=== PATIENT | female | born 1960 | race Two or more races ===

== ENCOUNTER 2020-08-11 15:20 | Inpatient (IN) | payer OTHER ==
[~2020-08-11] VITALS: Ht 157.5 cm; Wt 44.2 kg
[2020-08-11] MEDS ORDERED: SODIUM CHLORIDE 0.9% 1,000 ML IV ONE ×2 (16:15)
[2020-08-11] MEDS ORDERED: NOREPINEPHRINE 8 MG/250ML KIT 250 ML IV ONE (17:27)
[2020-08-11 17:49] LABS: Urine WBC None Seen /hpf (0 - 5)
[2020-08-11 17:59] LABS: Basophils # (auto) 0 10 ^3/uL (0-0.2); Basophils % (auto) 0.6 % (0.0-2.0); Eosinophils # (auto) 0.1 10 ^3/uL (0-0.8); Eosinophils % (auto) 2.3 % (0.0-7.0); Hematocrit 38.2 % (36.0-46.0); Hemoglobin 13.4 g/dL (12.2-16.2); Lymphocytes % (auto) 17.1 % (10.0-50.0); Mean Corpuscular Hemoglobin 32.4 pg (28.0-32.0); Mean Corpuscular Hgb Conc. 35.1 g/dL (32.0-36.0); Mean Corpuscular Volume 92.4 fL (80.0-100.0); Monocytes # (auto) 0.4 10 ^3/uL (0-1.3); Monocytes % (auto) 5.7 % (0.0-12.0); Neutrophils # (auto) 4.6 10 ^3/uL (1.6-8.6); Neutrophils % (auto) 74.3 % (37.0-80.0); Platelet Count (auto) 270 10^3/uL (140-450); Red Blood Cells 4.14 10^6/uL (4.0-5.20); Red Cell Distribution Width 13.2 % (11.8-14.3); White Blood Cell 6.1 10^3/uL (4.4-10.8)
[2020-08-11 18:14] LABS: Alanine Aminotransferase 16 U/L (13-56); Albumin 3.6 g/dL (3.4-5.0); Anion Gap 7 (5-15); Aspartate Aminotransferase 19 U/L (15-37); BUN/Creatinine Ratio 28.1; Blood Urea Nitrogen 16 mg/dL (7-18); Calcium 8.7 mg/dL (8.5-10.1); Carbon Dioxide 30 mmol/L (21-32); Chloride 103 mmol/L (98-107); GFR African American 140 mL/min; GFR Non-African American 115 mL/min; Glucose 96 mg/dL (74-106); Potassium 3.1 mmol/L (3.5-5.1); Sodium 140 mmol/L (136-145)
[2020-08-11 18:18] LABS: Alkaline Phosphatase 80 U/L (45-117); Bilirubin, Total 0.4 mg/dL (0.2-1.0)
[2020-08-11 18:35] LABS: Urine Bacteria NONE SEEN /hpf (None Seen); Urine Blood Negative /uL (Negative); Urine Mucus FEW (None Seen); Urine Specific Gravity 1.007 (1.001-1.035)
[2020-08-11] MEDS ORDERED: MORPHINE SULF INJ 2 MG/ML SYRINGE 1ML IV PRN (23:00)
[2020-08-11] MEDS: SODIUM CHLORIDE 0.9% 1,000 ML IV SCH (23:00)
[2020-08-11] MEDS ORDERED: POTASSIUM CHL 20 Meq TABLET PO ONE (23:00)
[2020-08-11] MEDS ORDERED: ACETAMINOPHEN 325 MG TAB PO PRN (23:00)
[2020-08-11] MEDS ORDERED: NITROGLYCERIN 0.4 MG SL TAB SL PRN (23:00)
[2020-08-11] MEDS ORDERED: POTASSIUM EFFERVESENT TAB 25 MEQ PO ONE (23:45)
[2020-08-11 23:52] VITALS: BP 97/69
[2020-08-12 05:00] VITALS: BP 133/66
[2020-08-12 08:30] VITALS: BP 77/54
[2020-08-12] MEDS: FAMOTIDINE 20 MG TAB PO SCH ×2 (10:45→23:19)
[2020-08-12] MEDS: ENOXAPARIN SOD 30 MG/0.3 ML SYRINGE SC SCH (10:45)
[2020-08-12] MEDS: ASCORBIC ACID 500 MG TAB PO SCH ×2 (10:45→23:20)
[2020-08-12] MEDS: ZINC SULFATE 220mg CAP or TAB PO SCH (10:45)
[2020-08-12] MEDS: MULTIPLE VITAMIN TAB PO SCH (10:45)
[2020-08-12] MEDS ORDERED: SODIUM CHLORIDE 0.9% 500 ML IV ONE (11:30)
[2020-08-12 12:30] VITALS: BP 85/59
[2020-08-12 17:00] VITALS: BP 84/54
[2020-08-12] MEDS ORDERED: HYDR12.56 PO (17:29)
[2020-08-12] MEDS ORDERED: AMLO-489 PO (17:29)
[2020-08-12] MEDS ORDERED: ATOR-47 PO (17:29)
[2020-08-12] MEDS: SODIUM CHLORIDE 0.9% 1,000 ML IV SCH ×2 (18:00→23:19)
[2020-08-12 22:00] VITALS: BP 80/66
[2020-08-13] VITALS (9 sets, daily range): BP systolic 92–117; BP diastolic 59–78
[2020-08-13 05:47] LABS: Basophils # (auto) 0.1 10 ^3/uL (0-0.2); Basophils % (auto) 1.3 % (0.0-2.0); Eosinophils # (auto) 0.3 10 ^3/uL (0-0.8); Eosinophils % (auto) 5.1 % (0.0-7.0); Hematocrit 35.4 % (36.0-46.0); Hemoglobin 12.5 g/dL (12.2-16.2); Lymphocytes # (auto) 1.4 10 ^3/uL (0.4-5.4); Lymphocytes % (auto) 22.5 % (10.0-50.0); Mean Corpuscular Hemoglobin 32.8 pg (28.0-32.0); Mean Corpuscular Hgb Conc. 35.2 g/dL (32.0-36.0); Mean Corpuscular Volume 93.2 fL (80.0-100.0); Monocytes # (auto) 0.4 10 ^3/uL (0-1.3); Monocytes % (auto) 7.1 % (0.0-12.0); Neutrophils # (auto) 3.9 10 ^3/uL (1.6-8.6); Nucleated Red Blood Cells % 0.1 %; Platelet Count (auto) 254 10^3/uL (140-450); Red Cell Distribution Width 13.4 % (11.8-14.3); White Blood Cell 6.1 10^3/uL (4.4-10.8)
[2020-08-13 06:59] LABS: Alanine Aminotransferase 15 U/L (13-56); Albumin 2.9 g/dL (3.4-5.0); Alkaline Phosphatase 66 U/L (45-117); Anion Gap 8 (5-15); Aspartate Aminotransferase 18 U/L (15-37); Bilirubin, Total 0.3 mg/dL (0.2-1.0); Blood Urea Nitrogen 8 mg/dL (7-18); Calcium 8.5 mg/dL (8.5-10.1); Carbon Dioxide 21 mmol/L (21-32); Chloride 111 mmol/L (98-107); GFR African American 162 mL/min; GFR Non-African American 134 mL/min; Glucose 90 mg/dL (74-106); Potassium 3.7 mmol/L (3.5-5.1); Sodium 140 mmol/L (136-145); Total Protein 6.6 g/dL (6.4-8.2)
[2020-08-13] MEDS: ZINC SULFATE 220mg CAP or TAB PO SCH (09:35)
[2020-08-13] MEDS: ASCORBIC ACID 500 MG TAB PO SCH ×2 (09:36→20:56)
[2020-08-13] MEDS: MULTIPLE VITAMIN TAB PO SCH (09:36)
[2020-08-13] MEDS: FAMOTIDINE 20 MG TAB PO SCH ×2 (09:36→20:57)
[2020-08-13] MEDS: SODIUM CHLORIDE 0.9% 1,000 ML IV SCH ×2 (09:37→19:12)
[2020-08-13] MEDS: ENOXAPARIN SOD 30 MG/0.3 ML SYRINGE SC SCH (09:37)
[2020-08-13] MEDS: Ensure HIGH Protein Chocolate 8oz Bottle PO SCH ×2 (15:38→18:18)
[2020-08-14 05:35] VITALS: BP 100/76
[2020-08-14 05:48] LABS: Basophils # (auto) 0 10 ^3/uL (0-0.2); Basophils % (auto) 0.7 % (0.0-2.0); Eosinophils # (auto) 0.3 10 ^3/uL (0-0.8); Eosinophils % (auto) 6.5 % (0.0-7.0); Hematocrit 34.1 % (36.0-46.0); Hemoglobin 12.2 g/dL (12.2-16.2); Lymphocytes # (auto) 1.2 10 ^3/uL (0.4-5.4); Lymphocytes % (auto) 23.6 % (10.0-50.0); Mean Corpuscular Hemoglobin 32.9 pg (28.0-32.0); Mean Corpuscular Hgb Conc. 35.7 g/dL (32.0-36.0); Monocytes # (auto) 0.4 10 ^3/uL (0-1.3); Monocytes % (auto) 7.3 % (0.0-12.0); Neutrophils # (auto) 3.2 10 ^3/uL (1.6-8.6); Neutrophils % (auto) 61.9 % (37.0-80.0); Platelet Count (auto) 256 10^3/uL (140-450); Red Cell Distribution Width 13.3 % (11.8-14.3); White Blood Cell 5.2 10^3/uL (4.4-10.8)
[2020-08-14 06:07] LABS: Potassium 3.8 mmol/L (3.5-5.1)
[2020-08-14 06:48] LABS: BUN/Creatinine Ratio 19.6; Calcium 8.9 mg/dL (8.5-10.1)
[2020-08-14 08:00] VITALS: BP 127/78
[2020-08-14] MEDS: Ensure HIGH Protein Chocolate 8oz Bottle PO SCH ×3 (08:00→18:00)
[2020-08-14 09:00] VITALS: BP 127/78
[2020-08-14] MEDS: ZINC SULFATE 220mg CAP or TAB PO SCH (09:57)
[2020-08-14] MEDS: ASCORBIC ACID 500 MG TAB PO SCH ×2 (09:57→20:22)
[2020-08-14] MEDS: ENOXAPARIN SOD 30 MG/0.3 ML SYRINGE SC SCH (09:57)
[2020-08-14] MEDS: MULTIPLE VITAMIN TAB PO SCH (09:57)
[2020-08-14] MEDS: FAMOTIDINE 20 MG TAB PO SCH ×2 (09:57→20:22)
[2020-08-14 13:00] VITALS: BP 113/89
[2020-08-14 17:00] VITALS: BP 94/75
[2020-08-14] MEDS: SODIUM CHLORIDE 0.9% 1,000 ML IV SCH (17:40)
[2020-08-14] MEDS ORDERED: IOHEXOL 300 MG/ML 100ML BOTTLE IJ ONE (17:51)
[2020-08-15 02:41] VITALS: BP 124/81
[2020-08-15 05:00] VITALS: BP 91/46
[2020-08-15] MEDS: LEVOTHYROXINE SODIUM 25 MCG TAB PO SCH (05:57)
[2020-08-15 06:10] LABS: Basophils # (auto) 0 10 ^3/uL (0-0.2); Basophils % (auto) 0.6 % (0.0-2.0); Eosinophils # (auto) 0.3 10 ^3/uL (0-0.8); Eosinophils % (auto) 6.4 % (0.0-7.0); Hematocrit 34.1 % (36.0-46.0); Hemoglobin 12.2 g/dL (12.2-16.2); Lymphocytes # (auto) 1.3 10 ^3/uL (0.4-5.4); Mean Corpuscular Hgb Conc. 35.7 g/dL (32.0-36.0); Mean Corpuscular Volume 92.5 fL (80.0-100.0); Monocytes # (auto) 0.5 10 ^3/uL (0-1.3); Monocytes % (auto) 8.3 % (0.0-12.0); Neutrophils # (auto) 3.3 10 ^3/uL (1.6-8.6); Neutrophils % (auto) 60.7 % (37.0-80.0); Platelet Count (auto) 253 10^3/uL (140-450); Red Blood Cells 3.69 10^6/uL (4.0-5.20); Red Cell Distribution Width 13.4 % (11.8-14.3); White Blood Cell 5.5 10^3/uL (4.4-10.8)
[2020-08-15 06:30] LABS: Potassium 4.1 mmol/L (3.5-5.1)
[2020-08-15 06:42] LABS: BUN/Creatinine Ratio 22.4; Calcium 8.6 mg/dL (8.5-10.1)
[2020-08-15] MEDS: Ensure HIGH Protein Chocolate 8oz Bottle PO SCH ×3 (08:00→18:00)
[2020-08-15 09:00] VITALS: BP 125/76
[2020-08-15] MEDS: FAMOTIDINE 20 MG TAB PO SCH ×3 (10:04→21:23)
[2020-08-15] MEDS: MULTIPLE VITAMIN TAB PO SCH (10:04)
[2020-08-15] MEDS: ZINC SULFATE 220mg CAP or TAB PO SCH (10:04)
[2020-08-15] MEDS: ENOXAPARIN SOD 30 MG/0.3 ML SYRINGE SC SCH (10:05)
[2020-08-15] MEDS: ASCORBIC ACID 500 MG TAB PO SCH ×3 (10:05→21:23)
[2020-08-15 11:36] LABS: Free T4 (Free Thyroxine) 1.04 ng/dL (0.89-1.76); T3 Total 1.08 ng/mL (0.60-1.81)
[2020-08-15 13:00] VITALS: BP 92/62
[2020-08-15 17:00] VITALS: BP 100/72
[2020-08-15 22:00] VITALS: BP 95/68
[2020-08-15] MEDS ORDERED: ALBUTEROL SULF 2.5 MG/0.5ML(0.5%) NEB SOLN NEB ONE (22:30)
[2020-08-16 05:00] VITALS: BP 119/78
[2020-08-16] MEDS: LEVOTHYROXINE SODIUM 25 MCG TAB PO SCH (06:02)
[2020-08-16] MEDS: Ensure HIGH Protein Chocolate 8oz Bottle PO SCH ×3 (08:00→18:00)
[2020-08-16 09:05] VITALS: BP 100/70
[2020-08-16] MEDS ORDERED: GADOTERATE MEG 10 MMOL/20ml INJ (0.5MMOL/ml) IV ONE (09:09)
[2020-08-16] MEDS: ZINC SULFATE 220mg CAP or TAB PO SCH (10:12)
[2020-08-16] MEDS: MULTIPLE VITAMIN TAB PO SCH (10:15)
[2020-08-16] MEDS: ENOXAPARIN SOD 30 MG/0.3 ML SYRINGE SC SCH (10:15)
[2020-08-16] MEDS: ASCORBIC ACID 500 MG TAB PO SCH ×2 (10:15→22:00)
[2020-08-16] MEDS: FAMOTIDINE 20 MG TAB PO SCH ×2 (10:16→22:00)
[2020-08-16] MEDS: ONDANSETRON HCL 4 MG/2 ML VIAL IV PRN (12:30)
[2020-08-16 12:58] VITALS: BP 88/67
[2020-08-16] MEDS ORDERED: LACTULOSE 20Gm/30ML SOLN PO PRN (14:30)
[2020-08-16] MEDS ORDERED: VANCOMYCIN PER PHARMACY 0 MG IV SCH (14:45)
[2020-08-16] MEDS ORDERED: AZITHROMYCIN 500MG/ 250ML 250 ML IV ONE (14:45)
[2020-08-16] MEDS ORDERED: PIPERACILLIN-TAZOB 3.375GM 100 ML IV SCH (16:02)
[2020-08-16 16:42] VITALS: BP 153/92
[2020-08-16] MEDS ORDERED: IOHEXOL 300 MG/ML 100ML BOTTLE IJ ONE (17:39)
[2020-08-16] MEDS: PIPERACILLIN-TAZOB 3.375GM 100 ML IV SCH (18:30)
[2020-08-16 20:00] VITALS: BP 93/75
[2020-08-16] MEDS: VANCOMYCIN 1GM/250ML 250 ML IV SCH (21:00)
[2020-08-16 22:00] VITALS: BP 101/74
[2020-08-17] MEDS: PIPERACILLIN-TAZOB 3.375GM 100 ML IV SCH ×4 (00:22→18:30)
[2020-08-17] MEDS: HYDROcodone-ACET 5/325MG TAB PO PRN (02:02)
[2020-08-17 05:00] VITALS: BP 100/73
[2020-08-17 05:53] LABS: Basophils # (auto) 0 10 ^3/uL (0-0.2); Basophils % (auto) 0.2 % (0.0-2.0); Eosinophils # (auto) 0.1 10 ^3/uL (0-0.8); Eosinophils % (auto) 0.3 % (0.0-7.0); Hematocrit 31.5 % (36.0-46.0); Hemoglobin 11.2 g/dL (12.2-16.2); Lymphocytes # (auto) 0.7 10 ^3/uL (0.4-5.4); Lymphocytes % (auto) 4.4 % (10.0-50.0); Mean Corpuscular Hemoglobin 32.7 pg (28.0-32.0); Mean Corpuscular Hgb Conc. 35.5 g/dL (32.0-36.0); Monocytes # (auto) 0.9 10 ^3/uL (0-1.3); Monocytes % (auto) 6.1 % (0.0-12.0); Neutrophils # (auto) 13.3 10 ^3/uL (1.6-8.6); Platelet Count (auto) 228 10^3/uL (140-450); Red Blood Cells 3.43 10^6/uL (4.0-5.20); Red Cell Distribution Width 13.8 % (11.8-14.3)
[2020-08-17 06:10] LABS: BUN/Creatinine Ratio 21.9; Magnesium 1.8 mg/dL (1.6-2.6); Phosphorus 2.9 mg/dL (2.5-4.90)
[2020-08-17] MEDS: VANCOMYCIN 1GM/250ML 250 ML IV SCH ×2 (06:39→16:30)
[2020-08-17] MEDS: LEVOTHYROXINE SODIUM 25 MCG TAB PO SCH (06:39)
[2020-08-17] MEDS: Ensure HIGH Protein Chocolate 8oz Bottle PO SCH ×3 (08:00→18:17)
[2020-08-17 08:45] LABS: INR 1.02 (0.9-1.15); Partial Thromboplastin Time 32.3 sec (23.0-31.2)
[2020-08-17 09:10] VITALS: BP 81/53
[2020-08-17] MEDS: MULTIPLE VITAMIN TAB PO SCH (10:00)
[2020-08-17] MEDS: FAMOTIDINE 20 MG TAB PO SCH ×2 (10:00→21:49)
[2020-08-17] MEDS: ZINC SULFATE 220mg CAP or TAB PO SCH (10:00)
[2020-08-17] MEDS: ENOXAPARIN SOD 30 MG/0.3 ML SYRINGE SC SCH (10:00)
[2020-08-17] MEDS: ASCORBIC ACID 500 MG TAB PO SCH ×2 (10:00→21:50)
[2020-08-17] MEDS: AZITHROMYCIN 500MG/ 250ML 250 ML IV SCH (10:24)
[2020-08-17 13:00] VITALS: BP 112/59
[2020-08-17 14:15] VITALS: BP 81/53
[2020-08-17] MEDS: ACETYLCYSTEINE 10 %(100MG/ML) SOL 4ML NEB SCH ×3 (14:20→22:14)
[2020-08-17] MEDS: ALBUTEROL SULF 2.5 MG/0.5ML(0.5%) NEB SOLN NEB SCH ×3 (14:22→22:14)
[2020-08-17 16:40] VITALS: BP 81/55
[2020-08-17] MEDS ORDERED: ALBUMIN 25% 100 ML IV ONE (17:30)
[2020-08-17 21:54] VITALS: BP 90/69
[2020-08-18] MEDS: PIPERACILLIN-TAZOB 3.375GM 100 ML IV SCH ×4 (00:08→17:53)
[2020-08-18] MEDS: ACETYLCYSTEINE 10 %(100MG/ML) SOL 4ML NEB SCH ×7 (02:03→22:20)
[2020-08-18] MEDS: ALBUTEROL SULF 2.5 MG/0.5ML(0.5%) NEB SOLN NEB SCH ×7 (02:03→22:20)
[2020-08-18 02:39] LABS: Basophils # (auto) 0 10 ^3/uL (0-0.2); Basophils % (auto) 0.2 % (0.0-2.0); Eosinophils # (auto) 0.3 10 ^3/uL (0-0.8); Eosinophils % (auto) 1.8 % (0.0-7.0); Hemoglobin 11.5 g/dL (12.2-16.2); Lymphocytes # (auto) 0.5 10 ^3/uL (0.4-5.4); Lymphocytes % (auto) 3.1 % (10.0-50.0); Mean Corpuscular Hemoglobin 31.3 pg (28.0-32.0); Mean Corpuscular Hgb Conc. 33.9 g/dL (32.0-36.0); Mean Corpuscular Volume 92.4 fL (80.0-100.0); Monocytes # (auto) 0.9 10 ^3/uL (0-1.3); Monocytes % (auto) 5.4 % (0.0-12.0); Neutrophils # (auto) 15.5 10 ^3/uL (1.6-8.6); Neutrophils % (auto) 89.5 % (37.0-80.0); Platelet Count (auto) 251 10^3/uL (140-450); Red Blood Cells 3.68 10^6/uL (4.0-5.20); Red Cell Distribution Width 13.5 % (11.8-14.3); White Blood Cell 17.3 10^3/uL (4.4-10.8)
[2020-08-18] MEDS: VANCOMYCIN 1GM/250ML 250 ML IV SCH (03:00)
[2020-08-18 03:11] LABS: Calcium 8.9 mg/dL (8.5-10.1); Potassium 3.5 mmol/L (3.5-5.1)
[2020-08-18 05:10] VITALS: BP 90/63
[2020-08-18 05:28] LABS: Basophils # (auto) 0 10 ^3/uL (0-0.2); Basophils % (auto) 0.1 % (0.0-2.0); Eosinophils # (auto) 0.2 10 ^3/uL (0-0.8); Hematocrit 32.7 % (36.0-46.0); Hemoglobin 11.5 g/dL (12.2-16.2); Lymphocytes # (auto) 0.4 10 ^3/uL (0.4-5.4); Lymphocytes % (auto) 2.5 % (10.0-50.0); Mean Corpuscular Hemoglobin 32.4 pg (28.0-32.0); Mean Corpuscular Hgb Conc. 35.3 g/dL (32.0-36.0); Mean Corpuscular Volume 91.8 fL (80.0-100.0); Monocytes # (auto) 0.9 10 ^3/uL (0-1.3); Monocytes % (auto) 5.8 % (0.0-12.0); Neutrophils # (auto) 14.7 10 ^3/uL (1.6-8.6); Neutrophils % (auto) 90.6 % (37.0-80.0); Nucleated Red Blood Cells % 0.2 %; Platelet Count (auto) 259 10^3/uL (140-450); Red Blood Cells 3.56 10^6/uL (4.0-5.20); Red Cell Distribution Width 13.4 % (11.8-14.3); White Blood Cell 16.3 10^3/uL (4.4-10.8)
[2020-08-18 05:52] LABS: Potassium 3.4 mmol/L (3.5-5.1)
[2020-08-18 06:00] LABS: Albumin 2.8 g/dL (3.4-5.0); BUN/Creatinine Ratio 19.8; Bilirubin, Total 0.8 mg/dL (0.2-1.0); Magnesium 2.2 mg/dL (1.6-2.6); Total Protein 7.1 g/dL (6.4-8.2)
[2020-08-18] MEDS: LEVOTHYROXINE SODIUM 25 MCG TAB PO SCH (06:47)
[2020-08-18] MEDS: Ensure HIGH Protein Chocolate 8oz Bottle PO SCH ×3 (08:00→18:00)
[2020-08-18] MEDS ORDERED: POTASSIUM CHLORIDE 20 MEQ, LIDOCAINE 1% (LOCAL ANESTH.) 2 ML in SODIUM CHL 0.9% 100 ML IV ONE (08:30)
[2020-08-18 09:00] VITALS: BP 95/53
[2020-08-18] MEDS: FAMOTIDINE 20 MG TAB PO SCH ×2 (10:00→23:11)
[2020-08-18] MEDS: ENOXAPARIN SOD 30 MG/0.3 ML SYRINGE SC SCH (10:00)
[2020-08-18] MEDS: AZITHROMYCIN 500MG/ 250ML 250 ML IV SCH (10:22)
[2020-08-18] MEDS: ZINC SULFATE 220mg CAP or TAB PO SCH (10:22)
[2020-08-18] MEDS: ASCORBIC ACID 500 MG TAB PO SCH ×2 (10:23→23:11)
[2020-08-18] MEDS: MULTIPLE VITAMIN TAB PO SCH (10:23)
[2020-08-18 13:00] VITALS: BP 118/58
[2020-08-18 17:05] VITALS: BP 115/60
[2020-08-18] MEDS: VANCOMYCIN 750mg/250ml 250 ML IV SCH (17:34)
[2020-08-18 22:12] VITALS: BP 95/52
[2020-08-18 22:16] VITALS: BP 93/67
[2020-08-19] MEDS: PIPERACILLIN-TAZOB 3.375GM 100 ML IV SCH ×5 (00:36→23:50)
[2020-08-19 05:01] VITALS: BP 99/77
[2020-08-19 05:02] VITALS: BP 90/71
[2020-08-19 05:25] LABS: Basophils # (auto) 0 10 ^3/uL (0-0.2); Basophils % (auto) 0.1 % (0.0-2.0); Eosinophils # (auto) 0.2 10 ^3/uL (0-0.8); Eosinophils % (auto) 2.1 % (0.0-7.0); Hematocrit 30.8 % (36.0-46.0); Hemoglobin 10.8 g/dL (12.2-16.2); Lymphocytes # (auto) 0.5 10 ^3/uL (0.4-5.4); Lymphocytes % (auto) 4.9 % (10.0-50.0); Mean Corpuscular Hemoglobin 32.5 pg (28.0-32.0); Mean Corpuscular Hgb Conc. 35.2 g/dL (32.0-36.0); Mean Corpuscular Volume 92.3 fL (80.0-100.0); Monocytes # (auto) 0.8 10 ^3/uL (0-1.3); Monocytes % (auto) 8.1 % (0.0-12.0); Neutrophils # (auto) 8.7 10 ^3/uL (1.6-8.6); Neutrophils % (auto) 84.8 % (37.0-80.0); Platelet Count (auto) 283 10^3/uL (140-450); Red Blood Cells 3.34 10^6/uL (4.0-5.20); Red Cell Distribution Width 13.5 % (11.8-14.3); White Blood Cell 10.2 10^3/uL (4.4-10.8)
[2020-08-19 06:00] LABS: Albumin 2.6 g/dL (3.4-5.0); Calcium 8.9 mg/dL (8.5-10.1); Magnesium 2.2 mg/dL (1.6-2.6); Potassium 3.5 mmol/L (3.5-5.1)
[2020-08-19 06:03] LABS: BUN/Creatinine Ratio 12.8; Bilirubin, Total 0.5 mg/dL (0.2-1.0); Phosphorus 2.6 mg/dL (2.5-4.90); Total Protein 6.8 g/dL (6.4-8.2)
[2020-08-19] MEDS: LEVOTHYROXINE SODIUM 25 MCG TAB PO SCH (06:38)
[2020-08-19] MEDS: ACETYLCYSTEINE 10 %(100MG/ML) SOL 4ML NEB SCH ×6 (07:20→22:27)
[2020-08-19] MEDS: ALBUTEROL SULF 2.5 MG/0.5ML(0.5%) NEB SOLN NEB SCH ×6 (07:20→22:27)
[2020-08-19] MEDS: Ensure HIGH Protein Chocolate 8oz Bottle PO SCH ×3 (08:00→17:05)
[2020-08-19 09:00] VITALS: BP 154/73
[2020-08-19] MEDS: AZITHROMYCIN 500MG/ 250ML 250 ML IV SCH (09:37)
[2020-08-19] MEDS: FAMOTIDINE 20 MG TAB PO SCH ×2 (09:39→22:03)
[2020-08-19] MEDS: ENOXAPARIN SOD 30 MG/0.3 ML SYRINGE SC SCH (09:39)
[2020-08-19] MEDS: ASCORBIC ACID 500 MG TAB PO SCH ×2 (09:39→22:03)
[2020-08-19] MEDS: HYDROcodone-ACET 5/325MG TAB PO PRN (09:39)
[2020-08-19] MEDS: MULTIPLE VITAMIN TAB PO SCH (09:39)
[2020-08-19] MEDS: ZINC SULFATE 220mg CAP or TAB PO SCH (09:39)
[2020-08-19] MEDS: VANCOMYCIN 750mg/250ml 250 ML IV SCH (10:00)
[2020-08-19] MEDS: ONDANSETRON HCL 4 MG/2 ML VIAL IV PRN ×2 (11:28→21:33)
[2020-08-19 13:00] VITALS: BP 109/84
[2020-08-19 17:16] VITALS: BP 126/93
[2020-08-19 22:00] VITALS: BP_SYST 84; BP_SYST 98; BP_DIAS 50; BP_DIAS 66
[2020-08-20] MEDS: HYDROcodone-ACET 5/325MG TAB PO PRN (01:46)
[2020-08-20] MEDS: VANCOMYCIN 750mg/250ml 250 ML IV SCH ×2 (04:11→22:42)
[2020-08-20] MEDS: ONDANSETRON HCL 4 MG/2 ML VIAL IV PRN (04:33)
[2020-08-20 05:00] VITALS: BP_SYST 101; BP_SYST 89; BP_DIAS 70; BP_DIAS 85
[2020-08-20] MEDS: PIPERACILLIN-TAZOB 3.375GM 100 ML IV SCH ×3 (06:05→17:53)
[2020-08-20] MEDS: LEVOTHYROXINE SODIUM 25 MCG TAB PO SCH (07:02)
[2020-08-20] MEDS: ALBUTEROL SULF 2.5 MG/0.5ML(0.5%) NEB SOLN NEB SCH ×5 (07:10→22:50)
[2020-08-20] MEDS: ACETYLCYSTEINE 10 %(100MG/ML) SOL 4ML NEB SCH ×5 (07:10→22:50)
[2020-08-20] MEDS: Ensure HIGH Protein Chocolate 8oz Bottle PO SCH ×3 (08:00→17:52)
[2020-08-20] MEDS: ASCORBIC ACID 500 MG TAB PO SCH ×2 (09:24→22:42)
[2020-08-20] MEDS: FAMOTIDINE 20 MG TAB PO SCH ×2 (09:24→22:42)
[2020-08-20] MEDS: AZITHROMYCIN 500MG/ 250ML 250 ML IV SCH (09:24)
[2020-08-20] MEDS: ZINC SULFATE 220mg CAP or TAB PO SCH (09:24)
[2020-08-20] MEDS: ENOXAPARIN SOD 30 MG/0.3 ML SYRINGE SC SCH (09:24)
[2020-08-20] MEDS: MULTIPLE VITAMIN TAB PO SCH (09:25)
[2020-08-20 09:44] VITALS: BP 92/73
[2020-08-20 10:48] VITALS: BP 92/73
[2020-08-20 13:00] VITALS: BP 90/70
[2020-08-20 17:00] VITALS: BP 101/70
[2020-08-20 22:00] VITALS: BP 123/71
[2020-08-20] MEDS: HYDROCORTISONE SOD SUCC 100 MG/2ML INJ VIAL IV SCH (22:42)
[2020-08-21] MEDS: PIPERACILLIN-TAZOB 3.375GM 100 ML IV SCH ×4 (00:32→18:51)
[2020-08-21] MEDS: ONDANSETRON HCL 4 MG/2 ML VIAL IV PRN ×2 (00:33→21:48)
[2020-08-21] MEDS: ACETYLCYSTEINE 10 %(100MG/ML) SOL 4ML NEB SCH ×6 (04:13→22:12)
[2020-08-21] MEDS: ALBUTEROL SULF 2.5 MG/0.5ML(0.5%) NEB SOLN NEB SCH ×6 (04:13→22:12)
[2020-08-21 05:00] VITALS: BP 124/71
[2020-08-21 05:48] LABS: Basophils # (auto) 0 10 ^3/uL (0-0.2); Basophils % (auto) 0.2 % (0.0-2.0); Eosinophils # (auto) 0 10 ^3/uL (0-0.8); Hematocrit 30.8 % (36.0-46.0); Hemoglobin 11.2 g/dL (12.2-16.2); Lymphocytes # (auto) 0.4 10 ^3/uL (0.4-5.4); Lymphocytes % (auto) 3.4 % (10.0-50.0); Mean Corpuscular Hemoglobin 32.7 pg (28.0-32.0); Mean Corpuscular Hgb Conc. 36.4 g/dL (32.0-36.0); Mean Corpuscular Volume 89.9 fL (80.0-100.0); Monocytes # (auto) 0.7 10 ^3/uL (0-1.3); Monocytes % (auto) 6.1 % (0.0-12.0); Neutrophils # (auto) 9.7 10 ^3/uL (1.6-8.6); Neutrophils % (auto) 90.3 % (37.0-80.0); Platelet Count (auto) 332 10^3/uL (140-450); Red Blood Cells 3.42 10^6/uL (4.0-5.20); Red Cell Distribution Width 13.4 % (11.8-14.3); White Blood Cell 10.7 10^3/uL (4.4-10.8)
[2020-08-21 06:11] LABS: Albumin 2.5 g/dL (3.4-5.0); Magnesium 2.1 mg/dL (1.6-2.6)
[2020-08-21 06:15] LABS: BUN/Creatinine Ratio 9.7; Bilirubin, Total 0.5 mg/dL (0.2-1.0); Phosphorus 2.9 mg/dL (2.5-4.90)
[2020-08-21] MEDS: LEVOTHYROXINE SODIUM 25 MCG TAB PO SCH (06:40)
[2020-08-21] MEDS: HYDROCORTISONE SOD SUCC 100 MG/2ML INJ VIAL IV SCH ×2 (06:40→21:49)
[2020-08-21] MEDS: Ensure HIGH Protein Chocolate 8oz Bottle PO SCH ×3 (08:00→18:14)
[2020-08-21 09:00] VITALS: BP 162/77
[2020-08-21 09:28] LABS: INR 0.97 (0.9-1.15); Partial Thromboplastin Time 25.7 sec (23.0-31.2)
[2020-08-21] MEDS: MULTIPLE VITAMIN TAB PO SCH (10:00)
[2020-08-21] MEDS: ZINC SULFATE 220mg CAP or TAB PO SCH (10:00)
[2020-08-21] MEDS: ASCORBIC ACID 500 MG TAB PO SCH ×2 (10:00→21:49)
[2020-08-21] MEDS: AZITHROMYCIN 500MG/ 250ML 250 ML IV SCH (10:37)
[2020-08-21] MEDS: FAMOTIDINE 20 MG TAB PO SCH ×2 (10:37→21:49)
[2020-08-21] MEDS: ENOXAPARIN SOD 30 MG/0.3 ML SYRINGE SC SCH (10:37)
[2020-08-21] MEDS ORDERED: POTASSIUM CHLORIDE 40 MEQ, LIDOCAINE 1% (LOCAL ANESTH.) 4 ML in SODIUM CHL 0.9% 250 ML IV ONE (12:45)
[2020-08-21 13:00] VITALS: BP 162/98
[2020-08-21 16:56] VITALS: BP 141/92
[2020-08-21] MEDS: VANCOMYCIN 1GM/250ML 250 ML IV SCH (17:38)
[2020-08-21 22:00] VITALS: BP 155/98
[2020-08-22] MEDS: PIPERACILLIN-TAZOB 3.375GM 100 ML IV SCH ×4 (00:05→17:11)
[2020-08-22 05:00] VITALS: BP 146/78
[2020-08-22] MEDS: ALBUTEROL SULF 2.5 MG/0.5ML(0.5%) NEB SOLN NEB SCH ×6 (05:45→22:09)
[2020-08-22] MEDS: ACETYLCYSTEINE 10 %(100MG/ML) SOL 4ML NEB SCH ×6 (05:45→22:10)
[2020-08-22] MEDS: VANCOMYCIN 1GM/250ML 250 ML IV SCH (05:59)
[2020-08-22] MEDS: HYDROCORTISONE SOD SUCC 100 MG/2ML INJ VIAL IV SCH (05:59)
[2020-08-22 06:48] LABS: BUN/Creatinine Ratio 15.9; Magnesium 2.1 mg/dL (1.6-2.6); Potassium 3.3 mmol/L (3.5-5.1)
[2020-08-22] MEDS: LEVOTHYROXINE SODIUM 25 MCG TAB PO SCH ×2 (07:00→15:50)
[2020-08-22 08:40] VITALS: BP 128/94
[2020-08-22] MEDS: ENOXAPARIN SOD 30 MG/0.3 ML SYRINGE SC SCH ×2 (10:00→15:50)
[2020-08-22] MEDS: AZITHROMYCIN 500MG/ 250ML 250 ML IV SCH (10:19)
[2020-08-22] MEDS: Ensure HIGH Protein Chocolate 8oz Bottle PO SCH ×3 (12:00→18:00)
[2020-08-22 12:57] VITALS: BP 117/72
[2020-08-22] MEDS ORDERED: POTASSIUM EFFERVESENT TAB 25 MEQ PO ONE (14:30)
[2020-08-22] MEDS: MULTIPLE VITAMIN TAB PO SCH (15:50)
[2020-08-22] MEDS: FAMOTIDINE 20 MG TAB PO SCH ×2 (15:50→21:17)
[2020-08-22] MEDS: ASCORBIC ACID 500 MG TAB PO SCH ×2 (15:50→21:18)
[2020-08-22] MEDS ORDERED: HYDROCORTISONE SOD SUCC 100 MG/2ML INJ VIAL ONE (16:08)
[2020-08-22 17:00] VITALS: BP 106/82
[2020-08-22 22:15] VITALS: BP 94/54
[2020-08-23] MEDS: PIPERACILLIN-TAZOB 3.375GM 100 ML IV SCH ×4 (00:10→17:56)
[2020-08-23] MEDS: ALBUTEROL SULF 2.5 MG/0.5ML(0.5%) NEB SOLN NEB SCH ×6 (02:21→22:58)
[2020-08-23] MEDS: ACETYLCYSTEINE 10 %(100MG/ML) SOL 4ML NEB SCH ×6 (02:22→22:59)
[2020-08-23 05:29] VITALS: BP 129/102
[2020-08-23] MEDS: Ensure HIGH Protein Chocolate 8oz Bottle PO SCH ×3 (08:00→17:55)
[2020-08-23 09:02] VITALS: BP 123/77
[2020-08-23] MEDS: ASCORBIC ACID 500 MG TAB PO SCH ×2 (09:42→21:16)
[2020-08-23] MEDS: MULTIPLE VITAMIN TAB PO SCH (09:42)
[2020-08-23] MEDS: FAMOTIDINE 20 MG TAB PO SCH ×2 (09:42→21:16)
[2020-08-23 13:13] VITALS: BP 134/74
[2020-08-23] MEDS ORDERED: LORazepam 2MG/ML-1ML VIAL IV ONE (13:30)
[2020-08-23] MEDS: SODIUM CHLORIDE 0.9% 1,000 ML IV SCH (14:45)
[2020-08-23 15:23] VITALS: BP 123/77
[2020-08-23 17:37] VITALS: BP 122/88
[2020-08-23 21:46] VITALS: BP 98/70
[2020-08-24] MEDS: PIPERACILLIN-TAZOB 3.375GM 100 ML IV SCH ×4 (00:13→18:00)
[2020-08-24] MEDS: ALBUTEROL SULF 2.5 MG/0.5ML(0.5%) NEB SOLN NEB SCH ×6 (02:04→23:19)
[2020-08-24] MEDS: ACETYLCYSTEINE 10 %(100MG/ML) SOL 4ML NEB SCH ×2 (02:05→06:59)
[2020-08-24] MEDS: SODIUM CHLORIDE 0.9% 1,000 ML IV SCH ×2 (04:05→20:13)
[2020-08-24 04:43] VITALS: BP 91/75
[2020-08-24 06:40] LABS: BUN/Creatinine Ratio 15.4; Calcium 8.5 mg/dL (8.5-10.1)
[2020-08-24] MEDS: LEVOTHYROXINE SODIUM 25 MCG TAB PO SCH (06:42)
[2020-08-24 07:06] LABS: Potassium 2.9 mmol/L (3.5-5.1)
[2020-08-24] MEDS: Ensure HIGH Protein Chocolate 8oz Bottle PO SCH ×3 (08:00→18:00)
[2020-08-24 08:56] VITALS: BP 90/69
[2020-08-24] MEDS: MULTIPLE VITAMIN TAB PO SCH (09:24)
[2020-08-24] MEDS: ENOXAPARIN SOD 30 MG/0.3 ML SYRINGE SC SCH (09:24)
[2020-08-24] MEDS: FAMOTIDINE 20 MG TAB PO SCH (09:25)
[2020-08-24] MEDS: ASCORBIC ACID 500 MG TAB PO SCH (09:25)
[2020-08-24] MEDS ORDERED: POTASSIUM CHLORIDE 60 MEQ, LIDOCAINE 1% (LOCAL ANESTH.) 6 ML in SODIUM CHL 0.9% 500 ML IV ONE (11:15)
[2020-08-24] MEDS ORDERED: ASPirin 81 mg TAB PO ONE (11:15)
[2020-08-24] MEDS ORDERED: CLINIMIX PER PHARMACY 0 ML IV SCH (11:45)
[2020-08-24 12:34] LABS: Albumin 2.3 g/dL (3.4-5.0); Magnesium 1.8 mg/dL (1.6-2.6)
[2020-08-24 12:41] LABS: Alanine Aminotransferase 22 U/L (13-56); Alkaline Phosphatase 71 U/L (45-117); Aspartate Aminotransferase 21 U/L (15-37); Bilirubin, Direct < 0.1 mg/dL (0-0.2); Bilirubin, Total 0.3 mg/dL (0.2-1.0); Phosphorus 2.7 mg/dL (2.5-4.90); Pre Albumin 13.8 mg/dL (20.0-40.0); Total Protein 6.1 g/dL (6.4-8.2); Triglycerides 84 mg/dL (< 150)
[2020-08-24] MEDS ORDERED: SODIUM CHLORIDE 0.9% 1,000 ML IV SCH (12:45)
[2020-08-24 13:02] VITALS: BP_SYST 144; BP_SYST 156; BP_DIAS 88; BP_DIAS 92
[2020-08-24 17:44] VITALS: BP 169/86
[2020-08-24] MEDS ORDERED: AMINO ACID INFUSION IN D10W 1,000 ML IV NR (20:00)
[2020-08-24 22:00] VITALS: BP 174/91
[2020-08-24] MEDS ORDERED: ATORVASTATIN 20 MG TAB PO SCH (22:00)
[2020-08-25] VITALS (7 sets, daily range): BP systolic 129–168; BP diastolic 78–98
[2020-08-25] MEDS ORDERED: DEXTROSE (50%) 50ML SYRG IV SCH
[2020-08-25] MEDS: PIPERACILLIN-TAZOB 3.375GM 100 ML IV SCH ×4 (00:26→19:15)
[2020-08-25] MEDS: ACCU-CHEK COMFORT CURVE STRIP VI SCH ×4 (00:27→18:00)
[2020-08-25] MEDS: ALBUTEROL SULF 2.5 MG/0.5ML(0.5%) NEB SOLN NEB SCH ×5 (03:05→19:06)
[2020-08-25] MEDS: InsuLIN REG 1unit/0.01ml Soln (100units/ml) SC SCH ×4 (06:00→18:00)
[2020-08-25 06:27] LABS: Potassium 3.5 mmol/L (3.5-5.1)
[2020-08-25 06:35] LABS: Albumin 2.4 g/dL (3.4-5.0); BUN/Creatinine Ratio 16.7; Bilirubin, Total 0.3 mg/dL (0.2-1.0); Calcium 8.6 mg/dL (8.5-10.1); Magnesium 1.9 mg/dL (1.6-2.6); Phosphorus 2.1 mg/dL (2.5-4.90); Total Protein 6.3 g/dL (6.4-8.2)
[2020-08-25] MEDS: Ensure HIGH Protein Chocolate 8oz Bottle PO SCH ×3 (08:00→18:00)
[2020-08-25] MEDS ORDERED: GASTROGRAFIN 120 ML SOL ONE (08:57)
[2020-08-25] MEDS ORDERED: EZ-GAS II GRANULES (RADIOLOGY USE) PO ONE (08:57)
[2020-08-25] MEDS: ENOXAPARIN SOD 30 MG/0.3 ML SYRINGE SC SCH (09:31)
[2020-08-25] MEDS ORDERED: ASPirin 81 mg TAB PO SCH (10:00)
[2020-08-25] MEDS ORDERED: FAMOTIDINE (10MG/ML) 2ML VL IV SCH (10:00)
[2020-08-25] MEDS: SODIUM CHLORIDE 0.9% 1,000 ML IV SCH (12:40)
[2020-08-25] MEDS ORDERED: POTASSIUM PHOSP 26.4MEQ(18MMOL) IN NS 100 ML IV ONE (17:00)
[2020-08-25] MEDS ORDERED: AMINO ACID INFUSION IN D10W 1,000 ML IV NR (20:00)
== END 2020-08-25 21:32 | disposition short-term general hospital (02) | DRG 871 ==
LOC: EDBD 15:20 → ER 15:20 → TELE-WESTW 22:59 → ER 23:49 → TELE-WESTW 08-12 00:10
PROVIDERS: ADMIT Nurse Practitioner Family; ATTEND Internal Medicine
DX: A41.9 Sepsis, unspecified organism (principal); J96.01 Acute respiratory failure with hypoxia; E43 Unspecified severe protein-calorie malnutrition; J69.0 Pneumonitis due to inhalation of food and vomit; Z68.1 Body mass index [BMI] 19.9 or less, adult; Z20.822 Contact with and (suspected) exposure to COVID-19; J98.4 Other disorders of lung; E04.2 Nontoxic multinodular goiter; E03.9 Hypothyroidism, unspecified; I65.22 Occlusion and stenosis of left carotid artery; I95.9 Hypotension, unspecified; E87.6 Hypokalemia; I10 Essential (primary) hypertension; E04.1 Nontoxic single thyroid nodule; Z82.49 Family history of ischemic heart disease and other diseases of the circulatory system; Z80.41 Family history of malignant neoplasm of ovary; Z85.818 Personal history of malignant neoplasm of other sites of lip, oral cavity, and pharynx; Z86.73 Personal history of transient ischemic attack (TIA), and cerebral infarction without residual deficits; Z92.21 Personal history of antineoplastic chemotherapy; Z92.3 Personal history of irradiation
CPT/HCPCS: 36415; 36600; 70450; 70491; 70545; 70551; 71045; 71046; 71260; 72148; 74177; 74183; 76536; 76942; 80048; 80053; 80076; 80202; 81001; 82040; 82105; 82533; 82565; 82805; 82962; 83605; 83735; 83880; 84100; 84436; 84439; 84443; 84478; 84480; 84484; 85025; 85049; 85610; 85730; 86376; 86800; 87040; 87081; 87086; 87426; 92610; 93005; 93306; 93970; 94640; 96360; 96361; 97110; 97116; 97530; G0378; J2001; J2405; J2543; J3490; P9047